=== PATIENT | male | born 1955 | race Caucasian/White ===

== ENCOUNTER 2021-01-24 01:51 | Emergency (ER) | payer MEDICAID ==
[~2021-01-24] VITALS: Ht 172.7 cm; Wt 99.8 kg
[2021-01-24 01:51] VITALS: BP 131/75
--- NOTE | 2021-01-24 03:41 | NUR ---
[email or web address]. dr. jonathan [email or web address].
== END 2021-01-24 04:07 | disposition left against medical advice (07) ==
LOC: ER 01:52
DX: R05 Cough (principal); I10 Essential (primary) hypertension; J45.909 Unspecified asthma, uncomplicated; E11.9 Type 2 diabetes mellitus without complications; Z88.6 Allergy status to analgesic agent; Z88.8 Allergy status to other drugs, medicaments and biological substances